=== PATIENT | female | born 1970 | race Caucasian/White ===

== ENCOUNTER 2016-07-25 20:07 | Emergency (ER) | payer OTHER ==
[~2016-07-25] VITALS: Ht 167.6 cm; Wt 79.1 kg
[2016-07-25 21:10] LABS: CHLORIDE 103 mEq/L (99-109); POTASSIUM 4.3 mEq/L (3.7-5.4); SODIUM 136 mEq/L (136-147)
[2016-07-25 21:12] LABS: GLUCOSE 156 mg/dL (70-99)
[2016-07-25 21:13] LABS: ANION GAP 13 MEQ/L (2-14)
[2016-07-25 21:14] LABS: HEMATOCRIT 47.6 % (36.0-46.0); MCH 30.1 PG (29.0-34.0); MCHC 34.5 G/DL (30.0-36.0); MCV 87.3 FL (83-99); MEAN PLAT.VOLUME 9.7 uM^3 (9.5-12.4); PLATELET COUNT 380 K/uL (156-360); RBC DIS.WIDTH-CV 12.7 % (11.8-14.6); RBC DIS.WIDTH-SD 40.7 % (39-53); RED BLOOD COUNT 5.45 M/uL (3.80-5.20)
[2016-07-25 21:16] LABS: GFR ESTIMATE (CALCULATED) 57 mL/min/
[2016-07-25 21:17] LABS: UREA NITROGEN (BUN) 18 mg/dL (9-23)
[2016-07-25 21:24] LABS: QUANTITATIVE HCG < 4.0 MIU/ML
[2016-07-25] MEDS ORDERED: PREDNISONE20 MG PO (22:36)
[2016-07-25 22:51] VITALS: BP 110/78
== END 2016-07-25 23:05 | disposition home or self-care (01) ==
LOC: EME 20:07
PROVIDERS: Emergency Medicine
DX: T78.1XXA Other adverse food reactions, not elsewhere classified, initial encounter (principal); S06.0X9A Concussion with loss of consciousness of unspecified duration, initial encounter; R11.2 Nausea with vomiting, unspecified; W18.30XA Fall on same level, unspecified, initial encounter; Z88.2 Allergy status to sulfonamides
CPT/HCPCS: 80048; 84702; 85027; 99281; 99285; J1200; J2405; J2930; J7030; S0028